=== PATIENT | male | born 1955 | race Asian ===

== ENCOUNTER 2021-07-06 02:59 | Emergency (ER) | payer SELFPAY ==
[~2021-07-06] VITALS: Ht 177.8 cm; Wt 94.3 kg
[2021-07-06 03:03] VITALS: BP 104/80
[2021-07-06 04:56] LABS: BASOPHILS % 0.3 % (0.0-2.0); EOSINOPHILS % 3.4 % (0.0-5.0); HEMOGLOBIN. 13.6 g/dL (14.0-18.0); LYMPHOCYTES % 23.8 % (20.0-50.0); MEAN CORPUSCULAR HEMOGLOBIN 29.6 pg (28.0-32.0); MEAN CORPUSCULAR VOLUME 87.1 fL (80.0-94.0); MEAN PLATELET VOLUME 6.6 fl (7.4-10.4); MONOCYTES % 12.2 % (2.0-8.0); NEUTROPHILS % 60.3 % (40.0-76.0); PLATELET 250 x1000/uL (130-400); RED BLOOD CELL COUNT 4.59 mill/uL (4.7-6.1); RED CELL DISTRIBUTION WIDTH 12.8 % (11.6-14.6)
[2021-07-06 06:02] LABS: CHLORIDE 95 mEq/L (98-107)
[2021-07-06] MEDS ORDERED: ALBU6.7H9 INH (06:54)
[2021-07-06] MEDS ORDERED: P20 MT (06:54)
== END 2021-07-06 07:17 | disposition home or self-care (01) ==
LOC: ER 03:42
DX: U07.1 COVID-19 (principal); J45.909 Unspecified asthma, uncomplicated; I44.0 Atrioventricular block, first degree
CPT/HCPCS: 36415; 71045; 80053; 84484; 85025; 93005; 99285; C9803; U0003; U0005

== ENCOUNTER 2021-07-12 14:57 | Inpatient (IN) | payer MEDICAID ==
[~2021-07-12] VITALS: Ht 170.2 cm; Wt 119.0 kg
[~2021-07-12 14:57] MED LIST: ALBU6.7H9 INH; P20 MT
[2021-07-12] MEDS ORDERED: ASPIRIN 81MG TABLET PO ONE (16:15)
[2021-07-12] MEDS ORDERED: NITROGLYCERIN 0.4MG TABLET SL SL PRN ×2 (16:15→18:15)
[2021-07-12 16:45] LABS: BASOPHILS % 0.3 % (0.0-2.0); HEMATOCRIT. 38.8 % (42.0-52.0); HEMOGLOBIN. 13.2 g/dL (14.0-18.0); LYMPHOCYTES % 16.3 % (20.0-50.0); MEAN CORPUSCULAR HEMOGLOBIN 29.9 pg (28.0-32.0); MEAN CORPUSCULAR VOLUME 87.7 fL (80.0-94.0); MEAN PLATELET VOLUME 6.3 fl (7.4-10.4); MONOCYTES % 10.6 % (2.0-8.0); NEUTROPHILS % 70.8 % (40.0-76.0); PLATELET 340 x1000/uL (130-400); RED BLOOD CELL COUNT 4.43 mill/uL (4.7-6.1)
[2021-07-12 16:52] LABS: CHLORIDE 101 mEq/L (98-107)
[2021-07-12] MEDS ORDERED: GUAIFENESIN 200MG/10ML SUGAR FREE UDC PO PRN (18:15)
[2021-07-12] MEDS ORDERED: IPRATROPIUM/ALBUTEROL 0.5-3(2.5)MG/3ML NEB NEB PRN (18:15)
[2021-07-12] MEDS ORDERED: CLONIDINE 0.1MG TABLET PO PRN (18:15)
[2021-07-12] MEDS ORDERED: DOCUSATE SODIUM 100MG CAPSULE PO PRN (18:15)
[2021-07-12] MEDS ORDERED: ACETAMINOPHEN 325MG TABLET PO PRN ×2 (18:15)
[2021-07-12] MEDS ORDERED: ONDANSETRON HCL 4MG/2ML INJ IV PRN (18:15)
[2021-07-12] MEDS ORDERED: MAGNESIUM/ALUMINUM HYDROXIDE/SIMETHICONE 30ML UDC PO PRN (18:15)
[2021-07-12] MEDS ORDERED: KETOROLAC 15MG/ML VIAL IV PRN (18:19)
[2021-07-12] MEDS ORDERED: ENOXAPARIN 40MG/0.4ML SYR SUBCUT SCH (18:30)
[2021-07-12] MEDS ORDERED: LEVOFLOXACIN 500MG PREMIX 100 ML IV SCH (18:30)
[2021-07-12] MEDS: METHYLPREDNISOLONE SOD SUCC 125 MG/2 ML VIAL IV SCH (19:30)
[2021-07-12 19:59] LABS: ETHANOL BLOOD < 10 mg/dL
[2021-07-12 20:00] LABS: TOTAL IRON BINDING CAPACITY 256 ug/dL (250-450)
[2021-07-12] MEDS ORDERED: ZOLPIDEM TARTRATE 5MG TABLET PO PRN (20:00)
[2021-07-12 20:08] LABS: FOLIC ACID (FOLATE) SERUM 11.4 ng/mL (>5.38)
[2021-07-12] MEDS: ASCORBIC ACID 500 MG TABLET PO SCH (21:00)
[2021-07-12] MEDS: FAMOTIDINE 20MG TABLET PO SCH (21:00)
[2021-07-13 00:04] LABS: CREATINE KINASE 228 IU/L (39-308)
[2021-07-13 00:05] LABS: CREATINE KINASE MB FRACTION 2.6 ng/mL (0.5-3.6)
[2021-07-13] MEDS: METHYLPREDNISOLONE SOD SUCC 125 MG/2 ML VIAL IV SCH (02:30)
[2021-07-13] MEDS: ASCORBIC ACID 500 MG TABLET PO SCH (08:25)
[2021-07-13] MEDS: FAMOTIDINE 20MG TABLET PO SCH (08:25)
[2021-07-13] MEDS ORDERED: ASPIRIN 325MG EC TABLET PO SCH (09:00)
[2021-07-13] MEDS ORDERED: CHOLECALCIFEROL (D3) 1000 UNIT TABLET PO SCH (09:00)
[2021-07-13] MEDS ORDERED: ZINC SULFATE 220 MG ( 50 ) CAPSULE PO SCH (09:00)
[2021-07-13] MEDS: IPRATROPIUM/ALBUTEROL 0.5-3(2.5)MG/3ML NEB HHN SCH ×2 (09:19→09:20)
[2021-07-13 09:29] LABS: CHLORIDE 103 mEq/L (98-107)
[2021-07-13 09:33] LABS: BASOPHILS % 0.3 % (0.0-2.0); EOSINOPHILS % 0.1 % (0.0-5.0); HEMATOCRIT. 39.9 % (42.0-52.0); HEMOGLOBIN. 13.9 g/dL (14.0-18.0); LYMPHOCYTES % 11.1 % (20.0-50.0); MEAN CORPUSCULAR HEMOGLOBIN 30.8 pg (28.0-32.0); MEAN CORPUSCULAR VOLUME 88.4 fL (80.0-94.0); MEAN PLATELET VOLUME 6.6 fl (7.4-10.4); MONOCYTES % 2.2 % (2.0-8.0); NEUTROPHILS % 86.3 % (40.0-76.0); PLATELET 346 x1000/uL (130-400); RED BLOOD CELL COUNT 4.52 mill/uL (4.7-6.1); RED CELL DISTRIBUTION WIDTH 13.2 % (11.6-14.6)
[2021-07-13 09:35] LABS: PHOSPHORUS 3.6 mg/dL (2.5-4.9)
[2021-07-13 09:37] LABS: CREATINE KINASE 185 IU/L (39-308)
[2021-07-13 09:40] LABS: CREATINE KINASE MB FRACTION 1.9 ng/mL (0.5-3.6)
[2021-07-13 09:43] LABS: *BARBITURATES SCREEN URINE NEGATIVE (NEGATIVE)
[2021-07-13 09:45] LABS: *AMPHETAMINES SCREEN URINE NEGATIVE (NEGATIVE); *BENZODIAZEPINES SCREEN URINE NEGATIVE (NEGATIVE); *COCAINE SCREEN URINE NEGATIVE (NEGATIVE); CANNABINOID URINE SCREEN NEGATIVE (NEGATIVE); METHADONE URINE SCREEN NEGATIVE (NEGATIVE); OPIATES URINE SCREEN NEGATIVE (NEGATIVE); PHENCYCLIDINE URINE SCREEN NEGATIVE (NEGATIVE)
[2021-07-13 14:55] VITALS: BP 140/88
== END 2021-07-13 14:19 | disposition home or self-care (01) | DRG 203 ==
LOC: ER 14:57 → MICUSO 18:03 → ENRESERV 07-13 09:40
PROVIDERS: ADMIT Internal Medicine; ATTEND Internal Medicine
DX: M94.0 Chondrocostal junction syndrome [Tietze] (principal); E87.1 Hypo-osmolality and hyponatremia; J44.1 Chronic obstructive pulmonary disease with (acute) exacerbation; E66.9 Obesity, unspecified; Z68.41 Body mass index [BMI] 40.0-44.9, adult; F17.210 Nicotine dependence, cigarettes, uncomplicated; Z20.822 Contact with and (suspected) exposure to COVID-19
CPT/HCPCS: 36415; 71045; 80053; 80305; 80320; 82550; 82553; 82607; 82746; 83540; 83550; 83735; 83880; 84100; 84145; 84443; 84484; 85025; 85379; 87426; 93005; 99285; J1650; J1956; J2930; G0480